=== PATIENT | male | born 1980 | race Hispanic/Latino ===

== ENCOUNTER 2023-02-10 12:26 | Emergency (ER) | payer OTHER ==
[~2023-02-10] VITALS: Ht 175.3 cm; Wt 99.8 kg
[2023-02-10 14:01] VITALS: BP 128/81
== END 2023-02-10 14:08 ==
LOC: EDH 12:26
DX: F41.9 Anxiety disorder, unspecified (principal); Z02.89 Encounter for other administrative examinations